=== PATIENT | male | born 1945 | race Caucasian/White ===

== ENCOUNTER 2023-12-17 09:11 | Inpatient (IN) | payer MEDICAID ==
[~2023-12-17] VITALS: Ht 170.2 cm; Wt 90.7 kg
[2023-12-17] MEDS ORDERED: MORPHINE SULFATE 4 MG/ML INJ (FOR IV/IM USE) IV ONE (11:15)
[2023-12-17] MEDS ORDERED: METRONIDAZOLE 500 MG PREMIX 100 ML IV STA (11:39)
[2023-12-17] MEDS ORDERED: VANCOMYCIN 1G PREMIX 200 ML IV STA (11:39)
[2023-12-17] MEDS ORDERED: CEFTRIAXONE 1GM/50ML 50 ML IV STA (11:39)
[2023-12-17 11:55] LABS: BASOPHILS % 0.4 % (0.0-2.0); EOSINOPHILS % 2.6 % (0.0-5.0); HEMATOCRIT. 41.3 % (42.0-52.0); HEMOGLOBIN. 13.2 g/dL (14.0-18.0); LYMPHOCYTES % 28.7 % (20.0-50.0); MEAN CORPUSCULAR HEMOGLOBIN 27.1 pg (28.0-32.0); MEAN CORPUSCULAR HGB CONC 31.9 g/dL (31.0-37.0); MEAN CORPUSCULAR VOLUME 84.9 fL (80.0-94.0); MONOCYTES % 9.7 % (2.0-8.0); NEUTROPHILS % 58.6 % (40.0-76.0); PLATELET 271 x1000/uL (130-400); RED BLOOD CELL COUNT 4.86 mill/uL (4.7-6.1); RED CELL DISTRIBUTION WIDTH 16.5 % (11.6-14.6)
[2023-12-17 12:16] LABS: CHLORIDE 109 mEq/L (98-107); POTASSIUM 3.8 mEq/L (3.5-5.1); SODIUM 142 mEq/L (136-145)
[2023-12-17 12:17] LABS: CALCIUM 9.5 mg/dL (8.7-10.4); CARBON DIOXIDE 27 mEq/L (21-32)
[2023-12-17 12:22] LABS: CREATININE 0.9 mg/dL (0.6-1.3); GLUCOSE 101 mg/dL (70-105); UREA NITROGEN BLOOD 11 mg/dL (9-23)
[2023-12-17 12:24] LABS: ALANINE AMINOTRANSFERASE 19 IU/L (10-49); ASPARTATE AMINOTRANSFERASE 14 IU/L (<34); BILIRUBIN DIRECT 0.1 mg/dL (<=3.0); BILIRUBIN TOTAL 0.5 mg/dL (0.1-1.0); PROTEIN TOTAL 7.1 g/dL (6.0-8.3); PROTHROMBIN TIME 10.8 sec (9.6-11.0)
[2023-12-17] MEDS ORDERED: VANCOMYCIN 1G PREMIX 200 ML IV NR (14:30)
[2023-12-17] MEDS ORDERED: LORAZEPAM 0.5MG TABLET PO PRN (15:00)
[2023-12-17] MEDS ORDERED: GUAIFENESIN 200MG/10ML SUGAR FREE UDC PO PRN (15:00)
[2023-12-17] MEDS ORDERED: CLONIDINE 0.1MG TABLET PO PRN (15:00)
[2023-12-17] MEDS ORDERED: DOCUSATE SODIUM 100MG CAPSULE PO PRN (15:00)
[2023-12-17] MEDS ORDERED: ACETAMINOPHEN 325MG TABLET PO PRN ×2 (15:00)
[2023-12-17] MEDS ORDERED: IPRATROPIUM/ALBUTEROL 0.5-3(2.5)MG/3ML NEB HHN PRN (15:00)
[2023-12-17] MEDS: METRONIDAZOLE 500 MG PREMIX 100 ML IV NR (16:10)
[2023-12-17] MEDS: CEFTRIAXONE 1GM/50ML 50 ML IV NR (16:10)
[2023-12-17] MEDS: MORPHINE SULFATE 4 MG/ML INJ (FOR IV/IM USE) IV NR (16:11)
[2023-12-17] MEDS: GADOTERATE MEGLUMINE 5 MMOL/10 ML VIAL IV ONE (16:12)
[2023-12-17] MEDS: POTASSIUM CHLORIDE 20MEQ/PACKET PO SCH (16:30)
[2023-12-17] MEDS: DEXT 5%/LACTATED RINGERS 1,000 ML IV SCH (16:44)
[2023-12-17] MEDS: VANCOMYCIN 1GM PMX (XELLIA) 200 ML IV NR (16:45)
[2023-12-17 21:00] VITALS: BP 122/67; PULSE 62; RESP 18; TEMP 36.50292; O2SAT 96
[2023-12-17] MEDS ORDERED: TAMS-11 PO (21:09)
[2023-12-17] MEDS ORDERED: FINA5TAB11 PO (21:09)
[2023-12-17] MEDS ORDERED: LEVO75CA4 PO (21:09)
[2023-12-17] MEDS ORDERED: FERR325T6 MT (21:09)
[2023-12-17 21:15] VITALS: BP 122/67; PULSE 62; RESP 18; TEMP 36.5292
[2023-12-18] VITALS (52 sets, daily range): BP systolic 114–141; BP diastolic 57–80; PULSE 61–109; RESP 8–30; TEMP 36.3918–37.2252; O2SAT 90–100
[2023-12-18] MEDS ORDERED: THROMBIN (BOVINE) 5000 UNITS/VIAL TOP ONE (06:34)
[2023-12-18] MEDS ORDERED: GENTAMICIN SULF 40MG/ML 2ML VIAL ONE (06:35)
[2023-12-18] MEDS ORDERED: LIDOCAINE HCL/EPINEPHRINE 1%-EPI 1:100,000 20ML VIAL ONE (06:35)
[2023-12-18] MEDS ORDERED: NICARDIPINE 40MG/200ML PREMIX 200 ML IV ONE ×2 (06:56→10:40)
[2023-12-18] MEDS ORDERED: PHENYLEPHRINE 50MG/250ML PMX 250 ML IV ONE (06:57)
[2023-12-18 07:11] LABS: CALCIUM 9.6 mg/dL (8.7-10.4); CARBON DIOXIDE 27 mEq/L (21-32); CHLORIDE 108 mEq/L (98-107); POTASSIUM 3.7 mEq/L (3.5-5.1); SODIUM 143 mEq/L (136-145)
[2023-12-18 07:15] LABS: CREATININE 0.9 mg/dL (0.6-1.3)
[2023-12-18 07:16] LABS: GLUCOSE 107 mg/dL (70-105)
[2023-12-18 07:17] LABS: LDL CHOLESTEROL 84 mg/dL (5-100); TRIGLYCERIDE 146 mg/dL (0-150); UREA NITROGEN BLOOD 8 mg/dL (9-23)
[2023-12-18 07:18] LABS: CHOLESTEROL 136 mg/dL (<200); HDL CHOLESTEROL 34 mg/dL (>55)
[2023-12-18] MEDS ORDERED: HYDROMORPHONE HCL/PF 1MG/ML INJ ONE ×2 (07:20→09:57)
[2023-12-18] MEDS ORDERED: FENTANYL CITRATE/PF 50MCG/ML 2ML VIAL ONE ×2 (07:20→08:56)
[2023-12-18] MEDS ORDERED: ROCURONIUM BROMIDE 10MG/ML VIAL 5ML IV ONE ×3 (07:48→09:59)
[2023-12-18] MEDS ORDERED: PROPOFOL 200MG/20ML VIAL IV ONE (07:50)
[2023-12-18 07:51] LABS: HEMATOCRIT 41.2 % (42.0-52.0); HEMOGLOBIN 13.6 g/dL (14.0-18.0); MEAN CORPUSCULAR HEMOGLOBIN 27.8 pg (28.0-32.0); MEAN CORPUSCULAR VOLUME 84.2 fL (80.0-94.0); PLATELET 275 x1000/uL (130-400); RED CELL DISTRIBUTION WIDTH 16.3 % (11.6-14.6); WHITE BLOOD COUNT 6.6 x1000/uL (4.5-11.0)
[2023-12-18 07:53] LABS: HEPATITIS B SURFACE ANTIGEN NEGATIVE (Negative)
[2023-12-18 08:14] LABS: HEPATITIS C AB NON REACTIVE (Neg) (Negative)
[2023-12-18] MEDS: AMLODIPINE 5MG TABLET PO SCH (09:00)
[2023-12-18] MEDS: FINASTERIDE 5MG TABLET PO SCH (09:00)
[2023-12-18] MEDS: TAMSULOSIN HCL 0.4MG SR CAPSULE PO SCH (09:00)
[2023-12-18] MEDS: LOSARTAN 25 MG TABLET PO SCH (09:00)
[2023-12-18] MEDS ORDERED: IOHEXOL-300 100 ML BOTTLE ONE (09:51)
[2023-12-18] MEDS ORDERED: SUGAMMADEX SODIUM 200MG/2ML VIAL IV ONE (10:15)
[2023-12-18] MEDS ORDERED: NICARDIPINE 100 MG in SODIUM CHLORIDE 0.9% 60 ML IV PRN (11:15)
[2023-12-18] MEDS: ONDANSETRON HCL 4MG/2ML INJ IV PRN (13:07)
[2023-12-18] MEDS: MORPHINE SULFATE 4 MG/ML INJ (FOR IV/IM USE) IV PRN (13:13)
[2023-12-18] MEDS: NICARDIPINE 100 MG in SODIUM CHLORIDE 0.9% 60 ML IV PRN (17:37)
[2023-12-19] VITALS (75 sets, daily range): BP systolic 88–156; BP diastolic 58–87; PULSE 81–121; RESP 8–28; TEMP 36.55848–37.05852; O2SAT 92–100
[2023-12-19 06:18] LABS: HEMATOCRIT 32.6 % (42.0-52.0); HEMOGLOBIN 10.4 g/dL (14.0-18.0); MEAN CORPUSCULAR HEMOGLOBIN 27.1 pg (28.0-32.0); MEAN CORPUSCULAR HGB CONC 31.9 g/dL (31.0-37.0); MEAN CORPUSCULAR VOLUME 84.9 fL (80.0-94.0); PLATELET 235 x1000/uL (130-400); RED BLOOD CELL COUNT 3.83 mill/uL (4.7-6.1); RED CELL DISTRIBUTION WIDTH 16.2 % (11.6-14.6)
[2023-12-19 06:37] LABS: CARBON DIOXIDE 26 mEq/L (21-32); CHLORIDE 108 mEq/L (98-107); POTASSIUM 3.8 mEq/L (3.5-5.1); SODIUM 142 mEq/L (136-145)
[2023-12-19 06:39] LABS: CALCIUM 8.7 mg/dL (8.7-10.4)
[2023-12-19 06:43] LABS: CREATININE 0.9 mg/dL (0.6-1.3); GLUCOSE 122 mg/dL (70-105); UREA NITROGEN BLOOD 10 mg/dL (9-23)
[2023-12-19] MEDS: HYDROCODONE/ACETAMINOPHEN 7.5/325MG TABLET PO PRN (11:30)
[2023-12-19] MEDS ORDERED: NALOXONE HCL 0.4MG/ML VIAL IV PRN (12:45)
[2023-12-20] VITALS: BP 120/57; PULSE 86; RESP 18; TEMP 37.05852
[2023-12-20 04:00] VITALS: BP 128/53; PULSE 90; RESP 18; TEMP 37.11408; O2SAT 95
[2023-12-20 07:03] LABS: CARBON DIOXIDE 27 mEq/L (21-32); CHLORIDE 105 mEq/L (98-107); POTASSIUM 3.3 mEq/L (3.5-5.1); SODIUM 139 mEq/L (136-145)
[2023-12-20 07:07] LABS: HEMATOCRIT 30.3 % (42.0-52.0); MEAN CORPUSCULAR HEMOGLOBIN 28.2 pg (28.0-32.0); MEAN CORPUSCULAR HGB CONC 32.9 g/dL (31.0-37.0); MEAN CORPUSCULAR VOLUME 85.7 fL (80.0-94.0); PLATELET 216 x1000/uL (130-400); RED BLOOD CELL COUNT 3.53 mill/uL (4.7-6.1); RED CELL DISTRIBUTION WIDTH 16.3 % (11.6-14.6); WHITE BLOOD COUNT 9.6 x1000/uL (4.5-11.0)
[2023-12-20 07:09] LABS: CREATININE 0.7 mg/dL (0.6-1.3); GLUCOSE 132 mg/dL (70-105); UREA NITROGEN BLOOD 7 mg/dL (9-23)
[2023-12-20 08:00] VITALS: BP 144/67; PULSE 85; RESP 20; TEMP 36.9474; O2SAT 98
[2023-12-20 12:00] VITALS: BP 124/69; PULSE 88; RESP 20; TEMP 36.61404; O2SAT 98
[2023-12-20] MEDS: BISACODYL 10MG SUPP PR SCH (13:38)
[2023-12-20] MEDS: POLYETHYLENE GLYCOL 3350 (17GM) 1 DOSE PACK PO SCH (13:38)
[2023-12-20 19:36] VITALS: BP 130/59; PULSE 95; RESP 18; TEMP 36.72516; O2SAT 97
[2023-12-20] MEDS: POTASSIUM CHLORIDE 20MEQ TABLET SR PO NR (21:37)
[2023-12-21] VITALS (7 sets, daily range): BP systolic 115–137; BP diastolic 47–71; PULSE 75–84; RESP 17–19; TEMP 35.33616–36.6696; O2SAT 96–100
[2023-12-21] MEDS ORDERED: NA PHOS,M-B/NA PHOS,DI-BA ENEMA 118ML PR PRN (11:45)
[2023-12-21] MEDS: NA PHOS,M-B/NA PHOS,DI-BA ENEMA 118ML PR NR (12:00)
[2023-12-21] MEDS: LACTULOSE 20G/30ML UDC PO SCH (13:00)
[2023-12-21 13:34] LABS: HEMATOCRIT 30.3 % (42.0-52.0); HEMOGLOBIN 10.1 g/dL (14.0-18.0); MEAN CORPUSCULAR HEMOGLOBIN 28.4 pg (28.0-32.0); MEAN CORPUSCULAR HGB CONC 33.3 g/dL (31.0-37.0); MEAN CORPUSCULAR VOLUME 85.3 fL (80.0-94.0); PLATELET 235 x1000/uL (130-400); RED BLOOD CELL COUNT 3.56 mill/uL (4.7-6.1); RED CELL DISTRIBUTION WIDTH 16.1 % (11.6-14.6); WHITE BLOOD COUNT 8.8 x1000/uL (4.5-11.0)
[2023-12-21 14:04] LABS: CHLORIDE 107 mEq/L (98-107); SODIUM 142 mEq/L (136-145)
[2023-12-21 14:05] LABS: CARBON DIOXIDE 30 mEq/L (21-32)
[2023-12-21 14:06] LABS: CALCIUM 9.3 mg/dL (8.7-10.4)
[2023-12-21 14:11] LABS: CREATININE 0.8 mg/dL (0.6-1.3); GLUCOSE 104 mg/dL (70-105); UREA NITROGEN BLOOD 9 mg/dL (9-23)
[2023-12-21] MEDS ORDERED: POLY17PO43 PO (20:06)
[2023-12-21] MEDS ORDERED: TOPUD PO (20:06)
[2023-12-21] MEDS ORDERED: AMLO5TAB88 PO (20:06)
[2023-12-21] MEDS ORDERED: TAMS-11 PO (20:06)
[2023-12-21] MEDS ORDERED: LOSA25TA26 PO (20:06)
[2023-12-21] MEDS ORDERED: FERR325T6 PO (20:06)
[2023-12-21] MEDS ORDERED: FINA5TAB11 PO (20:06)
== END 2023-12-21 22:00 | disposition home health service (06) | DRG 304 ==
LOC: ER 09:31 → 5WST 13:58 → EDBEDREQ 14:02 → 6WST 20:23 → MICUSO 12-18 12:03 → 6WST 12-19 19:22
PROVIDERS: ADMIT Internal Medicine; ATTEND Internal Medicine
PROC: 0SG1071 Fusion of 2 or more Lumbar Vertebral Joints with Autologous Tissue Substitute, Posterior Approach, Posterior Column, Open Approach (ICD-10-PCS; principal; 2023-12-18)
PROC: 0ST20ZZ Resection of Lumbar Vertebral Disc, Open Approach (ICD-10-PCS; 2023-12-18)
DX: M46.26 Osteomyelitis of vertebra, lumbar region (principal); G06.1 Intraspinal abscess and granuloma; G82.20 Paraplegia, unspecified; K59.2 Neurogenic bowel, not elsewhere classified; E66.9 Obesity, unspecified; I10 Essential (primary) hypertension; M46.49 Discitis, unspecified, multiple sites in spine; N36.8 Other specified disorders of urethra; N40.0 Benign prostatic hyperplasia without lower urinary tract symptoms; Z68.31 Body mass index [BMI] 31.0-31.9, adult; M46.46 Discitis, unspecified, lumbar region; M47.816 Spondylosis without myelopathy or radiculopathy, lumbar region; M46.47 Discitis, unspecified, lumbosacral region; M48.061 Spinal stenosis, lumbar region without neurogenic claudication; K59.09 Other constipation; D64.9 Anemia, unspecified; N31.9 Neuromuscular dysfunction of bladder, unspecified; R73.9 Hyperglycemia, unspecified; Z99.3 Dependence on wheelchair; Z79.899 Other long term (current) drug therapy; Z82.49 Family history of ischemic heart disease and other diseases of the circulatory system; Z86.61 Personal history of infections of the central nervous system
CPT/HCPCS: 36415; 71045; 72100; 72158; 74018; 76000; 80048; 80061; 80076; 83036; 85025; 85027; 86705; 86850; 86900; 87070; 87075; 87340; 88304; 88311; 93005; 95925; 95926; 95928; 95929; 97110; 97116; 97162; 97166; 97530; 97535; 99285; A9577; J0696; J1171; J1580; J2270; J2405; J2704; J3010; J3370; J3490; J7050; J7120; J7121; Q9967; C1713